=== PATIENT | female | born 1985 | race Caucasian/White ===

== ENCOUNTER 2020-10-15 17:19 | Emergency (ER) | payer OTHER ==
[~2020-10-15] VITALS: Ht 165.1 cm; Wt 67.0 kg
--- NOTE | 2020-10-15 18:16 | NUR ---
Rosalva horton in [facility] - 10/15/20 at 1816 by KAMARI pt reportas
[2020-10-15] MEDS ORDERED: ketorolac trometh inj. 60 MG/2 ML VIAL IM ONE (18:40)
--- NOTE | 2020-10-15 18:52 | NUR ---
pt to x ray
[2020-10-15] MEDS ORDERED: NAPR-56 PO (19:09)
[2020-10-15 19:17] VITALS: BP 114/86
== END 2020-10-15 19:19 | disposition home or self-care (01) ==
LOC: ER 17:20
DX: R07.89 Other chest pain (principal); M94.0 Chondrocostal junction syndrome [Tietze]; F17.200 Nicotine dependence, unspecified, uncomplicated; F12.90 Cannabis use, unspecified, uncomplicated; Z59.0 Homelessness; Z72.89 Other problems related to lifestyle; Z98.82 Breast implant status; Z79.899 Other long term (current) drug therapy; S09.8XXA Other specified injuries of head, initial encounter
CPT/HCPCS: 71046; 96372; 99283; J1885